=== PATIENT | female | born 1955 | race African-American/Black ===

== ENCOUNTER 2024-02-27 15:26 | Outpatient (REF) | payer OTHER, SELFPAY | END 2024-02-27 15:27 | disposition home or self-care (01) | LOC: HO.SH 15:26 | PROVIDERS: Visit Provider Otolaryngology | DX: Z01.118 Encounter for examination of ears and hearing with other abnormal findings (principal); H90.3 Sensorineural hearing loss, bilateral | CPT/HCPCS: 92557 ==